=== PATIENT | female | born 1965 | race Two or more races ===

== ENCOUNTER → 2024-07-20 | Outpatient (CLI) | payer MEDICAID, SELFPAY ==
--- NOTE | 2024-07-20 13:00 | XR_ITS ---
Examination: Screening digital mammography, bilateral Computer aided detection 3-D breast Tomosynthesis, bilateral Date and time of exam: July 20, 2024 1332 hours Indication: Screening Technique: Nonmagnified MLO, CC views of the breasts to been obtained, reconstructed from 3-D Tomosynthesis images. R2 computer aided detection program utilized for evaluation of suspicious masses and/or abnormal calcifications. 3-D Tomosynthesis images obtained. Findings: Scattered areas of fibroglandular density Scattered bilateral calcifications. No suspicious masses Impression: BI-RADS category II: Benign Findings. Recommend 1 year follow-up mammogram.
== END | disposition home or self-care (01) ==
PROVIDERS: PCP Family Medicine; Referring Provider Nurse Practitioner Family; Visit Provider Nurse Practitioner Family
DX: Z12.31 Encounter for screening mammogram for malignant neoplasm of breast (principal); R92.323 Mammographic fibroglandular density, bilateral breasts; R92.1 Mammographic calcification found on diagnostic imaging of breast
CPT/HCPCS: 77063; 77067

== ENCOUNTER 2024-11-16 08:50 | Day surgery (SDC) | payer MEDICAID, SELFPAY ==
--- NOTE | 2024-11-15 06:43 | EKG_ITS ---
[facility] Test Date: 2024-11-15 Pat Name: CHANG MCNULTY Department: Room: - Gender: Female Dental Insurance Coordinator: CHARLOTTEBean : 1965 Requested By: Boni Wilson Order Number: [id number] Reading MD: Boni Wilson Measurements Intervals Garvin Rate: 80 P: 68 SC: 178 QRS: 11 QRSD: 98 T: 66 QT: 391 QTc: 451 Interpretive Statements SINUS RHYTHM NONSPECIFIC T-WAVE ABNORMALITY Compared to ECG 11/17/2023 10:29:32 T-wave abnormality now present Sinus arrhythmia no longer present /store/S0/[id number].pdf
[2024-11-15 08:05] VITALS: BMI 47.6
[2024-11-15 09:22] LABS: Basophils # (Auto) 0.1 Thou/mm3 (0.0-0.2); Basophils % (Auto) 1 % (0-2.5); Eosinophils # (Auto) 0.5 Thou/mm3 (0.0-0.5); Eosinophils % (Auto) 5 % (0-10); Hemoglobin 15.1 g/dL (12.0-16.0); Immature Granulocytes % (Auto) 1 % (0-0); Immature Granulocytes Auto 0.05 Thou/mm3 (0.00-0.00); Lymphocytes # (Auto) 3.8 Thou/mm3 (1.0-4.8); Lymphocytes % (Auto) 38 % (10-50); Mean Corpuscular HGB Conc 33.6 g/dl (31.0-37.0); Mean Corpuscular Hemoglobin 28.1 pg (25.0-35.0); Mean Corpuscular Volume 84 fL (80-100); Monocytes # (Auto) 1.1 Thou/mm3 (0.0-0.8); Monocytes % (Auto) 11 % (0-12); Neutrophils # (Auto) 4.6 Thou/mm3 (1.8-7.7); Neutrophils % (Auto) 45 % (37-80); Nucleated Red Blood Cell % 0 /100 WBC (0); Platelet Count 295 Thou/mm3 (140-440); Red Blood Count 5.37 Miln/mm3 (4.00-5.20); White Blood Count 10.2 Thou/mm3 (3.6-11.0)
[2024-11-15 09:36] LABS: Alanine Aminotransferase 34 U/L (10-49); Albumin, Serum 4.6 gm/dL (3.5-5.0); Albumin/Globulin Ratio 1.6 (1.2-2.2); Alkaline Phosphatase 100 U/L (46-116); Anion Gap 8 (7-16); Aspartate Amino Transferase 23 U/L (0-34); BUN/Creatinine Ratio 16 Ratio (12-20); Bilirubin,Total 1.6 mg/dL (0.3-1.2); Blood Urea Nitrogen 16 mg/dL (9-23); Calcium 9.3 mg/dL (8.3-10.6); Calcium (Corrected) 9.3 mg/dL (8.5-10.1); Carbon Dioxide 26.9 mMol/L (20.0-31.0); Chloride 106 mMol/L (98-107); Estimated Creatinine Clearance 72.9 mL/min (>60); Globulin 2.9 gm/dL (2.3-3.5); Glucose 96 mg/dL (74-106); Osmolality,Calculated 282 (275-295); Partial Thromboplastin Time 27.9 Seconds (22.0-36.0); Potassium 4.2 mMol/L (3.4-5.1); Prothrombin Time 10.6 Seconds (9.0-12.2); Sodium 141 mMol/L (136-145); Total Protein 7.5 gm/dL (5.7-8.2); eGFR > 60 See Note
[2024-11-16] VITALS (8 sets, daily range): BP systolic 148–173; BP diastolic 90–100; PULSE 78–94; RESP 12–22; TEMP 36.3–36.8; O2SAT 94–99; BMI 46.0
[2024-11-16] MEDS: RINGERS LACTATED 1000 ML 1,000 ML 20 ML IV (10:13)
--- NOTE | 2024-11-16 12:03 | SUR.PHASEI ---
1203: Pt. AAOx4, vitals stable, breathing unlabored, no complaint of pain or nausea, dressing to right leg CDI, no active bleed noted, bilateral dorsalis pedis pulses strong and regular, cap refill to bilateral feet less than 3 seconds, pt. able to wiggle bilateral legs, report received from Bennie BURNS and Rosa MADDOX.
--- NOTE | 2024-11-16 12:22 | ESOP_ITS ---
Date of Procedure 11/16/24 Pre Op Diagnosis Symptomatic varicose veins right lower extremity Post Op Diagnosis Same as preop diagnosis Procedure Varicose vein excision right lower extremity through 17 separate incisions Findings [facility] varicose veins were successfully removed or disrupted Procedure Description With the patient standing in the preoperative area all varicose veins to be removed were carefully marked with a sharpie pen. The patient was brought to the operating room and general anesthesia induced. The right lower extremity sterilely prepped and draped. A timeout was performed. The vein excisions were performed by making a small skin sarah in the marked areas with a #11 blade then bluntly enlarging the incision and sequentially excising them or disrupting them. After all veins had been either excised or disrupted hemostasis was obtained and the leg was cleaned. The incisions were then reapproximated with Steri-Strips and a sterile dressing was applied with gauze Curlex and an Vitor wrap. Patient will go from anesthesia was moved to recovery in stable condition. 17 separate incisions were used for the procedure Anesthesia other (Laryngeal mask anesthesia) Pathology / specimen Other (Right leg varicose veins) Estimated Blood Loss 40 Condition Stable Disposition PACU Surgeon Boni Roberts MD Surgical Staff Operation Date: 11/16/24 14:45 Case Staff C[employer] CONVERTER: Rosa New RN First Assistant: Cheryl Hunter
--- NOTE | 2024-11-16 12:35 | SUR.PHASEII ---
1235: received report from KATY Geiger. pt alert and oriented to name, place and time. c/o of pain to right leg but refused pain medication. stated that pain is tolerable. she is drinkinng water without any issues. dressing to right leg clean, dry and intact. positive CMS: positive pulse, cap refill to right toes less than 2 seconds and able to wiggle toes.
--- NOTE | 2024-11-16 12:35 | SUR.PHASEII ---
1235: Gave report to Shantel BURNS to resume care of pt. Pt. AAOx4, vitals stable, breathing unlabored, no complaint of pain or nausea.
--- NOTE | 2024-11-16 12:53 | SUR.PHASEII ---
1253: pt discharge to home via wheelchair. pt alert and oriented to name, place and time. no s/s of resp. distress or discomfort. c/o pain but tolerable. dressing to right leg clean, dry and intact. no bleeding. positive CMS: positive pulse, cap refill less than 2 seconds and able wiggle to right toes.
--- NOTE | 2024-11-16 12:53 | SUR.PHASEII ---
1253: discharge instructions given to daughter and patient, verbalizes understanding. all belongings brought given back to patient.
== END 2024-11-16 12:53 | disposition home or self-care (01) ==
PROVIDERS: Anesthesiology; PCP Family Medicine; Referring Provider Surgery Vascular Surgery; Visit Provider Surgery Vascular Surgery
PROC: (CPT 37785; principal; 2024-11-16 14:30)
DX: I83.811 Varicose veins of right lower extremity with pain (principal); I10 Essential (primary) hypertension; E78.00 Pure hypercholesterolemia, unspecified; Z79.899 Other long term (current) drug therapy
CPT/HCPCS: 37765; 36415; 80053; 85025; 85610; 85730; 93005; A4217; A4649; J0690; J1100; J2405; J2704; J3010; J3490; J7120; J1805